=== PATIENT | male | born 1995 | race Caucasian/White ===

== ENCOUNTER 2023-03-27 21:29 | Emergency (ER) | payer OTHER, SELFPAY ==
[2023-03-27 21:38] VITALS: BP 129/84; PULSE 91; RESP 20; TEMP 36.9; O2SAT 97; BMI 35.4
[2023-03-28 00:54] LABS: Influenza A PCR POSITIVE (Negative); Influenza B PCR NEGATIVE (Negative); Resp Syncy Virus RNA Qual PCR NEGATIVE (Negative); SARS COV2 PCR INHOUSE NEGATIVE (Negative)
[2023-03-28] MEDS: Ondansetron ODT 4 MG TAB.RAPDIS TRANSLINGU (03:26)
[2023-03-28] MEDS: Ibuprofen 600 MG TABLET PO (03:35)
[2023-03-28 03:36] VITALS: PULSE 101; RESP 20; TEMP 37.6; O2SAT 95
[2023-03-28] MEDS: Albuterol Sulfate 90 MCG 8 GM INHALER 4 PUFF INHALE (03:43)
[2023-03-28 03:44] VITALS: BP 136/66
[2023-03-28 03:58] VITALS: O2SAT 95
--- NOTE | 2023-03-28 04:16 | ED_ITS ---
HPI - URI/Sore Throat General Chief Complaint: Upper Respiratory Symptoms Stated Complaint: chest tightness Time Seen by Provider: 03/28/23 03:42 Source: patient Mode of arrival: ambulatory History of Present Illness HPI Narrative: Symptoms started today, body aches, chest discomfort, cough, congestion Related Data Previous Rx's Medication Instructions Recorded ondansetron HCl 4 mg tablet 4 mg PO Q8H PRN nausea and 03/28/23 vomiting 4 days #10 tabs oseltamivir 75 mg capsule (Tamiflu) 75 mg PO Q12H 5 days #10 caps 03/28/23 prednisone 50 mg tablet 50 mg PO DAILY 4 days #4 tabs 03/28/23 Allergies Allergy/AdvReac Type Severity Reaction Status Date / Time No Known Allergies Allergy Unverified 02/19/20 18:57 [No Known Allergies*] Review of Systems Review of Systems: Pertinent positives and negatives as stated in [facility] Past Medical History Source: nursing notes reviewed Social History Social History Smoked in Last 30 Days: No Use of substances other than those prescribed or required for medical reasons: No Advance Directives: No Advance Directives Information Provided: No Physical Exam Vital Signs: Vital Signs: Last Vital Signs Temp 99.6 F 03/28/23 03:36 Pulse 101 H 03/28/23 03:36 Resp 20 03/28/23 03:36 BP 136/66 03/28/23 03:44 Pulse Ox 95 03/28/23 03:58 O2 Del Method Room Air 03/28/23 03:58 BMI result Body Mass Index 35.4 VITAL SIGNS: Reviewed. GENERAL: Well developed, well nourished, in no acute distress. HEAD: Normocephalic/atraumatic EYES: PERRLA, EOMI EARS: Ext canals without abnormality, TMs non-bulging and non-erythematous NOSE: Nares patent bilateral OROPHARYNX: no oral lesions noted, posterior pharynx clear and non-erythematous without noted tonsillar enlargement/erythema/exudates NECK: Supple, no adenopathy LUNGS: Good inspiratory effort, mild decrease in breath sounds but not expiratory wheeze appreciated. SpO2<95> CARDIOVASCULAR: Regular rate and rhythm without noted murmurs ABDOMEN: Soft, non-tender, non-distended with bowel sounds. MUSCULOSKELETAL: No tenderness, deformities, or effusions noted on gross inspection. EXTREMITIES: No cyanosis, clubbing or edema. SKIN: Inspection of the skin reveals no rashes NEUROLOGIC: Alert and oriented x 4. Strength and sensation to light touch were grossly intact x 4. Medications Administered Discontinued Medications Generic Name Dose Route Start Last Admin Trade Name Freq PRN Reason Stop Dose Admin Albuterol Sulfate 4 puff 03/28/23 03:36 03/28/23 03:43 Albuterol Sulfate 90 Mcg 8 Gm Inhaler INHALE 03/28/23 03:37 4 puff ONCE ONE Administration Ibuprofen 600 mg 03/28/23 03:21 03/28/23 03:35 Ibuprofen 600 Mg Tablet PO 03/28/23 03:22 600 mg ONCE ONE Administration Ondansetron HCl 4 mg 03/28/23 03:21 03/28/23 03:26 Ondansetron Odt 4 Mg Tab.Rapdis TRANSLINGU 03/28/23 03:22 4 mg ONCE ONE Administration Oseltamivir Phosphate 75 mg 03/28/23 04:18 03/28/23 04:36 Oseltamivir Phosphate 75 Mg Capsule PO 03/28/23 04:19 75 mg ONCE ONE Administration Prednisone 50 mg 03/28/23 04:17 03/28/23 04:36 Prednisone 10 Mg Tablet PO 03/28/23 04:18 50 mg ONCE ONE Administration Medical Decision Making Medical Decision Making [facility] Narrative: 27-year-old male with history and clinical presentation consistent with viral syndrome and a component mild asthma exacerbation. Reviewed all investigations and patient is noted to be influenza A positive. Patient received albuterol inhaler with spacer as well as combination analgesics, 1st dose of Tamiflu as well as antinausea medication and started on a short course of prednisone. Is otherwise discharged home in stable condition. Differential Diagnosis Differential Diagnoses: The differential diagnosis associated with the presentation includes Please his discussion above Admission/Observation Consideration of admission/observation: Escalation of care including admission/observation considered Please see the discussion above Lab Data [facility] Lab Attestation statement: I reviewed the patient's lab results. Please see the discussion above Labs: Lab Results 03/27/23 Range/Units 21:55 Influenza Type A (PCR) POSITIVE A (Negative) Influenza Type B (PCR) NEGATIVE (Negative) RSV RNA Qual (PCR) NEGATIVE (Negative) SARS-CoV-2 RNA (RT-PCR) NEGATIVE (Negative) Discharge Plan Discharge Clinical Impression: Viral syndrome, Influenza A, Asthma Patient Disposition: Home, Self-Care Instructions: Asthma (ED), Influenza (ED), Viral Syndrome (ED) Additional Instructions: 1. Complete the short course of steroids as prescribed. 2. I recommend [id number] Tylenol/ibuprofen every 6 hours as needed for elevated temperatures, body aches. 3. Complete the entire course of Tamiflu as prescribed if you choose 2 I have also included a prescription for antinausea medication. 4. Follow-up with your primary care doctor. Return to the ER for any worsening symptoms. Prescriptions: New oseltamivir [Tamiflu] 75 mg capsule 75 mg PO Q12H 5 Days Qty: 10 0RF prednisone 50 mg tablet 50 mg PO DAILY 4 Days Qty: 4 0RF ondansetron HCl 4 mg tablet 4 mg PO Q8H PRN (Reason: nausea and vomiting) 4 Days Qty: 10 0RF Referrals: Margoth Kee FNP [Primary Care Provider] -
[2023-03-28] MEDS: predniSONE 10 MG TABLET 50 MG PO (04:36)
[2023-03-28] MEDS: Oseltamivir Phosphate 75 MG CAPSULE PO (04:36)
== END 2023-03-28 04:37 | disposition home or self-care (01) ==
PROVIDERS: Emergency Provider Student in an Organized Health Care Education/Training Program; PCP Nurse Practitioner Family
DX: B34.9 Viral infection, unspecified (principal); J10.1 Influenza due to other identified influenza virus with other respiratory manifestations; J45.909 Unspecified asthma, uncomplicated; Z20.822 Contact with and (suspected) exposure to COVID-19; Z20.828 Contact with and (suspected) exposure to other viral communicable diseases
CPT/HCPCS: 0241U; 99284

== ENCOUNTER 2023-05-11 09:32 | Emergency (ER) | payer OTHER, SELFPAY ==
--- NOTE | 2023-05-11 09:35 | ECG_ITS ---
Test Reason : chest tightness Blood Pressure : / mmHG Vent. Rate : 067 BPM Atrial Rate : 067 BPM P-R Int : 154 ms QRS Dur : 112 ms QT Int : 416 ms P-R-T Axes : 021 001 020 degrees QTc Int : 439 ms Normal sinus rhythm Normal ECG When compared with ECG of 06-MAR-2017 19:45, No significant change was found Referred By: Generic ED Physician Electronically Signed By:BENJY DUARTE
[2023-05-11 09:51] VITALS: BP 124/48; PULSE 72; RESP 16; TEMP 37.2; O2SAT 98; BMI 40.6
== END 2023-05-11 15:35 | disposition left against medical advice (07) ==
PROVIDERS: Emergency Provider Emergency Medicine; PCP Nurse Practitioner Family
DX: R07.89 Other chest pain (principal)
CPT/HCPCS: 93005; 99283

== ENCOUNTER → 2023-05-11 09:35 | Outpatient (BNV) | payer OTHER, SELFPAY | PROVIDERS: Emergency Provider Emergency Medicine; PCP Nurse Practitioner Family; Visit Provider Internal Medicine | DX: R07.89 Other chest pain (principal) | CPT/HCPCS: 93010 ==